=== PATIENT | female | born 1955 | race Caucasian/White ===

== ENCOUNTER 2018-05-16 09:45 | Outpatient (CLI) | payer BC | END 2018-05-16 09:46 | disposition home or self-care (01) | LOC: BICMAMMO 09:45 | PROVIDERS: ATTEND Obstetrics & Gynecology | DX: Z12.31 Encounter for screening mammogram for malignant neoplasm of breast (principal); Z80.3 Family history of malignant neoplasm of breast | CPT/HCPCS: 77063; 77067 ==

== ENCOUNTER 2019-04-27 08:46 | Outpatient (CLI) | payer BC ==
--- NOTE | 2019-04-27 12:10 | BD ---
DEXA BONE DENSITY STUDY: HISTORY: Postmenopausal. FINDINGS: Lumbar Spine: BMD (g/cm2) L1 0.791 T-Score: -1.8 L2 0.812 T-Score: -2.0 L3 0.771 T-Score: -2.8 L4 0.759 T-Score: -2.7 L1-L4 0.783 T-Score: -2.4 Femoral Neck: 0.712 T-Score: -1.2 Total Femur: 0.796 T-Score: -1.2 Impression: 1. Osteopenia of the lumbar spine and left femoral neck. 2. Ten-year fracture risk of a major osteoporotic fracture is 9% and of a hip fracture 0.8%. These fracture probabilities are calculated for an untreated patient. POS: [facility]
== END 2019-04-27 08:47 | disposition home or self-care (01) ==
LOC: BICMAMMO 08:46
PROVIDERS: ATTEND Obstetrics & Gynecology
DX: Z13.820 Encounter for screening for osteoporosis (principal); M85.89 Other specified disorders of bone density and structure, multiple sites
CPT/HCPCS: 77080